=== PATIENT | male | born 1990 | race Two or more races ===

== ENCOUNTER 2025-08-03 23:22 | Emergency (ER) | payer MEDICAID ==
[~2025-08-03] VITALS: Ht 167.6 cm; Wt 75.0 kg
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
[2025-08-04 00:02] VITALS: BP 125/75; PULSE 88; RESP 20; TEMP 98.7; O2SAT 95
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
[2025-08-04] MEDS: HYDROcodone-ACET 5/325MG TAB PO ONE (00:53)
== END 2025-08-04 01:29 | disposition home or self-care (01) ==
LOC: ER 23:22
DX: S01.311A Laceration without foreign body of right ear, initial encounter (principal); V89.2XXA Person injured in unspecified motor-vehicle accident, traffic, initial encounter; E11.9 Type 2 diabetes mellitus without complications; X58.XXXA Exposure to other specified factors, initial encounter; Y93.89 Activity, other specified; Y92.89 Other specified places as the place of occurrence of the external cause; Y99.8 Other external cause status
CPT/HCPCS: 70450; 71046; 73562; 82947; 82962